=== PATIENT | male | born 2000 | race Caucasian/White ===

== ENCOUNTER 2020-01-25 21:08 | Observation (INO) | payer OTHER ==
[2020-01-25 22:08] LABS: ABSOLUTE LYMPHOCYTES (AUTO) 1.2 10^3/uL (0.5-4.7); ABSOLUTE NEUT (AUTO) 15.4 10^3/uL (1.7-8.2); BASOPHILS % (AUTO) 0.2 % (0-2); EOSINOPHILS % (AUTO) 0.1 % (0-6); HEMATOCRIT 45.9 % (37.9-51.0); HEMOGLOBIN 16.3 g/dL (13.5-17.0); LYMPHOCYTES % (AUTO) 6.9 % (13-45); MEAN CORPUSCULAR HEMOGLOBIN 29.3 pg (27.0-33.4); MEAN CORPUSCULAR HGB CONC 35.6 g/dL (32.0-36.0); MEAN CORPUSCULAR VOLUME 82 fl (80-97); MONOCYTES % (AUTO) 5.9 % (3-13); PLATELET COUNT 317 10^3/uL (150-450); RED BLOOD COUNT 5.58 10^6/uL (4.35-5.55); RED CELL DISTRIBUTION WIDTH 12.8 % (11.5-14.0); SEGMENTED NEUTROPHILS % (AUTO) 86.9 % (42-78); TOTAL CELLS COUNTED % (AUTO) 100 %; WHITE BLOOD COUNT 17.7 10^3/uL (4.0-10.5)
[2020-01-25 22:28] LABS: ALKALINE PHOSPHATASE 64 U/L (38-126); ANION GAP 14 (5-19); ASPARTATE AMINO TRANSFERASE 27 U/L (17-59); BILIRUBIN,TOTAL 0.9 mg/dL (0.2-1.3); BLOOD UREA NITROGEN 11 mg/dL (7-20); CALCIUM 10.4 mg/dL (8.4-10.2); CARBON DIOXIDE 19 mmol/L (22-30); CHLORIDE 101 mmol/L (98-107); GLUCOSE 147 mg/dL (75-110); POTASSIUM 3.3 mmol/L (3.6-5.0); TOTAL PROTEIN 7.6 g/dL (6.3-8.2)
[2020-01-25 22:56] LABS: APPEARANCE,URINE CLEAR; BILIRUBIN,URINE NEGATIVE (NEGATIVE); COLOR,URINE YELLOW; GLUCOSE, URINE NEGATIVE (NEGATIVE); KETONES,URINE 20 mg/dL (NEGATIVE); LEUKOCYTE ESTERASE,URINE NEGATIVE (NEGATIVE); NITRITE,URINE NEGATIVE (NEGATIVE); PROTEIN,URINE NEGATIVE (NEGATIVE); URINE SPECIFIC GRAVITY 1.017; UROBILINOGEN,URINE NEGATIVE mg/dL (<2.0)
[2020-01-25] MEDS ORDERED: NORMAL SALINE 1000 ML 1,000 ML IV ONE (23:18)
[2020-01-25] MEDS ORDERED: ONDANSETRON HCL INJ/PF 4 MG/2 ML SDV IV ONE (23:19)
[2020-01-25] MEDS ORDERED: MORPHINE SULFATE 10 MG/ML INJ IV ONE (23:19)
[2020-01-25] MEDS ORDERED: POTASSI CL 20 MEQ/50 ML RIDER 20 MEQ/50 ML RTUPB IV ONE (23:19)
--- NOTE | 2020-01-25 23:29 | ER Document Report ---
ED Medical Screen (RME) - General Chief Complaint: Abdominal Pain Stated Complaint: SEVERE ABDOMINAL PAIN, BODY PAIN & TINGLES, CLAMY Time Seen by Provider: 01/25/20 22:45 Notes: Patient is a 19-year-old male who presents the emergency department with a chief complaint of generalized abdominal pain. Patient states that his pain started around 4:00 this afternoon. Patient states that he went jet skiing and denies any trauma. Patient denies any abdominal surgeries in the past. He states that he has never had this pain before. Patient is currently on Adderall for ADHD. - Related Data Allergies/Adverse Reactions: No Known Allergies Allergy (Verified 01/25/20 22:07) Review of Systems - Review of Systems Notes: REVIEW OF SYSTEMS: CONSTITUTIONAL : Denies recent illness. Denies recent unintentional weight loss. Denies fever, chills, or sweats. EENT: Denies eye, ear, throat, or mouth pain, discharge, or symptoms. Denies nasal or sinus congestion. CARDIOVASCULAR: Denies chest pain. RESPIRATORY: Denies shortness of breath, cough, congestion, difficulty breathing, or wheezing. GASTROINTESTINAL: See HPI. GENITOURINARY: Denies difficulty urinating, burning, blood in urine, urgency or frequency. MUSCULOSKELETAL: Denies neck and back pain. Denies joint pain or swelling. SKIN: Denies rash, itchiness, or lesions HEMATOLOGIC : Denies easy bruising or bleeding. LYMPHATIC: Denies swollen, painful, enlarged glands. NEUROLOGICAL: Denies no numbness or tingling denies weakness. Denies headache. Denies altered mental status. Denies alteration in speech. PSYCHIATRIC: Denies stress, anxiety, alteration in sleep patterns, or depression. All other systems reviewed and negative. Physical Exam - Vital signs Vitals: Temp Pulse Resp BP Pulse Ox 97.5 F 68 20 131/59 H 100 01/25/20 22:00 01/25/20 22:00 01/25/20 22:00 01/25/20 22:00 01/25/20 22:00 - Notes Notes: PHYSICAL EXAMINATION: GENERAL: Appears well, healthy, well-nourished, no acute distress. HEAD: Normocephalic, atraumatic. EYES: PERRL, conjunctiva normal, all extraocular movements intact, sclera nonicteric ENT: Moist mucous membranes. NECK: Supple, no noticeable swelling, redness, rash. Normal range of motion. LUNGS: Equal breath sounds bilaterally and clear to auscultation. No wheezes rales or rhonchi. CARDIOVASCULAR: S1-S2, regular rate, regular rhythm. Radial pulses 2+, normal. ABDOMEN: Normoactive bowel sounds. Soft, very tender generalized abdomen. Rebound tenderness to right lower quadrant. EXTREMITIES: Normal strength and range of motion, no pitting or edema. No cyanosis. NEUROLOGICAL: Moves all extremities upon command. Strength 5/5 in all extremities. PSYCH: Normal mood, normal affect. SKIN: Warm, dry. No rash, lesions, ulcerations noted. Normal skin turgor. Course - Re-evaluation Re-evalutation: 01/26/20 00:15 Hematology shows an elevated white count of 17,700 with a left shift with 86.9% neutrophils. No anemia noted. Chemistries show a sodium of 133.9 and a potassium of 3.3. Patient will be given potassium IV. 01/26/20 00:41 CT of the abdomen and pelvis is read by the radiologist that the appendix is at the upper limits of normal with 2 appendicoliths. I spoke with Dr. Eagle, the radiologist. He states that this is likely an early appendicitis. Will call Dr. Manzanares for consultation. We will start Zosyn. Notified the patient. 01/26/20 00:[address] Manzanares, the patient will be rapid covid test the patient. Patient will be admitted to the surgical floor. - Vital Signs Vital signs: Temp Pulse Resp BP Pulse Ox 97.5 F 68 17 131/59 H 98 01/25/20 22:00 01/25/20 22:00 01/26/20 00:16 01/25/20 22:00 01/26/20 00:16 - Laboratory Result Diagrams: 01/25/20 21:42 01/25/20 21:42 Laboratory results interpreted by me: 01/25/20 01/25/20 01/25/20 21:42 21:42 22:40 WBC 17.7 H RBC 5.58 H Lymph % (Auto) 6.9 L Absolute Neuts (auto) 15.4 H Seg Neutrophils % 86.9 H Sodium 133.9 L Potassium 3.3 L Carbon Dioxide 19 L Glucose 147 H Calcium 10.4 H Urine Ketones 20 H Doctor's Discharge - Discharge Clinical Impression: Appendicitis Qualifiers: Appendicitis type: acute appendicitis Acute appendicitis type: with generalized peritonitis Appendicitis gangrene presence: without gangrene Appendicitis perforation presence: unspecified whether perforation present Appendicitis abscess presence: unspecified whether abscess present Qualified Code(s): K35.20 - Acute appendicitis with generalized peritonitis, without abscess Condition: Stable Disposition: ADMITTED INPATIENT
[2020-01-26 00:05] LABS: URINE BARBITURATES SCREEN NEGATIVE; URINE BENZODIAZEPINES SCREEN NEGATIVE; URINE COCAINE SCREEN NEGATIVE; URINE MARIJUANA (THC) SCREEN NEGATIVE; URINE METHADONE SCREEN NEGATIVE; URINE PHENCYCLIDINE SCREEN NEGATIVE
[2020-01-26 00:14] LABS: URINE AMPHETAMINES SCREEN UNCONFIRMED POSITIVE
[2020-01-26] MEDS ORDERED: MORPHINE SULFATE 10 MG/ML INJ IV ONE (00:32)
--- NOTE | 2020-01-26 00:33 | RADIOLOGY REPORT (SQ) ---
EXAM DESCRIPTION: [facility]: CT ABDOMEN PELVIS WITH IV CONTRAST CLINICAL HISTORY: 19 years Male; Abdominal pain; RLQ appendicitis?; TECHNIQUE: CT of the abdomen and pelvis using intravenous contrast. All CT scans at this facility use dose modulation, iterative reconstruction, and/or weight based dosing when appropriate to reduce radiation dose to as low as reasonably achievable. COMPARISON: None. FINDINGS: Abdomen: Stomach: No significant distention or surrounding edema. Liver:No focal lesions. No intrahepatic ductal distention. Gallbladder:Nondistended Pancreas:Within normal limits Spleen:Within normal limits Right kidney:No hydronephrosis. No focal lesion. Left kidney:No hydronephrosis. No focal lesion. Adrenal glands:Within normal limits Vascular structures:Within normal limits Pelvis: Small bowel:No significant distention. Appendix: There is an appendicolith near the tip and an appendicolith in the proximal appendix. Maximum transverse diameter 10 mm. There is no significant surrounding edema. No extraluminal air or fluid. Colon:No distention or acute pericolonic edema. No free intraperitoneal fluid or air. Bones: No acute bone findings. Bladder: Unremarkable. No pelvic mass or adenopathy. IMPRESSION: 1. Appendix is at the upper limits of normal in diameter, with 2 appendicoliths. There is no surrounding acute edema, although this could be an early appendicitis. 2. Otherwise normal exam.
[2020-01-26] MEDS ORDERED: PIPERACILLIN/TAZOBACTAM 3.375 GM VIAL IV ONE (00:47)
--- NOTE | 2020-01-26 01:01 | ER Document Report ---
ED GI/ - General Chief Complaint: Abdominal Pain Stated Complaint: SEVERE ABDOMINAL PAIN, BODY PAIN & TINGLES, CLAMY Time Seen by Provider: 01/25/20 22:45 Notes: Patient is a 19-year-old male who presents the emergency department with a chief complaint of generalized abdominal pain. Patient states that his pain started around 4:00 this afternoon. Patient states that he went jet skiing and denies any trauma. Patient denies any abdominal surgeries in the past. He states that he has never had this pain before. Patient is currently on Adderall for ADHD. - Related Data Allergies/Adverse Reactions: No Known Allergies Allergy (Verified 01/25/20 22:07) Past Medical History - General Information source: Patient - Social History Smoking Status: Never Smoker Family History: Reviewed & Not Pertinent Patient has homicidal ideation: No Review of Systems - Review of Systems Notes: REVIEW OF SYSTEMS: CONSTITUTIONAL : Denies recent illness. Denies recent unintentional weight loss. Denies fever, chills, or sweats. EENT: Denies eye, ear, throat, or mouth pain, discharge, or symptoms. Denies nasal or sinus congestion. CARDIOVASCULAR: Denies chest pain. RESPIRATORY: Denies shortness of breath, cough, congestion, difficulty breathing, or wheezing. GASTROINTESTINAL: See HPI. GENITOURINARY: Denies difficulty urinating, burning, blood in urine, urgency or frequency. MUSCULOSKELETAL: Denies neck and back pain. Denies joint pain or swelling. SKIN: Denies rash, itchiness, or lesions HEMATOLOGIC : Denies easy bruising or bleeding. LYMPHATIC: Denies swollen, painful, enlarged glands. NEUROLOGICAL: Denies no numbness or tingling denies weakness. Denies headache. Denies altered mental status. Denies alteration in speech. PSYCHIATRIC: Denies stress, anxiety, alteration in sleep patterns, or depression. All other systems reviewed and negative. Physical Exam - Vital signs Vitals: Temp Pulse Resp BP Pulse Ox 97.5 F 68 20 131/59 H 100 01/25/20 22:00 01/25/20 22:00 01/25/20 22:00 01/25/20 22:00 01/25/20 22:00 - Notes Notes: PHYSICAL EXAMINATION: GENERAL: Appears well, healthy, well-nourished, no acute distress. HEAD: Normocephalic, atraumatic. EYES: PERRL, conjunctiva normal, all extraocular movements intact, sclera nonicteric ENT: Moist mucous membranes. NECK: Supple, no noticeable swelling, redness, rash. Normal range of motion. LUNGS: Equal breath sounds bilaterally and clear to auscultation. No wheezes rales or rhonchi. CARDIOVASCULAR: S1-S2, regular rate, regular rhythm. Radial pulses 2+, normal. ABDOMEN: Normoactive bowel sounds. Soft, very tender generalized abdomen. Rebound tenderness to right lower quadrant. EXTREMITIES: Normal strength and range of motion, no pitting or edema. No cyanosis. NEUROLOGICAL: Moves all extremities upon command. Strength 5/5 in all ext remities. PSYCH: Normal mood, normal affect. SKIN: Warm, dry. No rash, lesions, ulcerations noted. Normal skin turgor. Course - Re-evaluation Re-evalutation: 01/26/20 00:15 Hematology shows an elevated white count of 17,700 with a left shift with 86.9% neutrophils. No anemia noted. Chemistries show a sodium of 133.9 and a potassium of 3.3. Patient will be given potassium IV. 01/26/20 00:41 CT of the abdomen and pelvis is read by the radiologist that the appendix is at the upper limits of normal with 2 appendicoliths. I spoke with Dr. Eagle, the radiologist. He states that this is likely an early appendicitis. Will call Dr. Manzanares for consultation. We will start Zosyn. Notified the patient. 01/26/20 00:[address] Manzanares, the patient will be rapid covid test the patient. Patient will be admitted to the surgical floor. - Vital Signs Vital signs: Temp Pulse Resp BP Pulse Ox 97.4 F 90 16 122/54 L 100 01/26/20 06:50 01/26/20 06:50 01/26/20 06:50 01/26/20 06:50 01/26/20 06:50 - Laboratory Result Diagrams: 01/25/20 21:42 01/25/20 21:42 Laboratory results interpreted by me: 01/25/20 01/25/20 01/25/20 21:42 21:42 22:40 WBC 17.7 H RBC 5.58 H Lymph % (Auto) 6.9 L Absolute Neuts (auto) 15.4 H Seg Neutrophils % 86.9 H Sodium 133.9 L Potassium 3.3 L Carbon Dioxide 19 L Glucose 147 H Calcium 10.4 H Urine Ketones 20 H Discharge - Discharge Clinical Impression: Appendicitis Qualifiers: Appendicitis type: acute appendicitis Acute appendicitis type: with generalized peritonitis Appendicitis gangrene presence: without gangrene Appendicitis pe rforation presence: unspecified whether perforation present Appendicitis abscess presence: unspecified whether abscess present Qualified Code(s): K35.20 - Acute appendicitis with generalized peritonitis, without abscess Condition: Good Disposition: ADMITTED INPATIENT Admitting Provider: Surgicalist Unit Admitted: Surgical Floor
--- NOTE | 2020-01-26 01:44 | PDOC H&P ---
History of Present Illness Admission Date/PCP: 01/26/20 01:11 Patient complains of: Right lower quadrant pain, subjective fevers/chills History of Present Illness: TINY MONTALVO is a 19 year old male with a 1 day history of sharp, stabbing right lower quadrant pain. His pain was mild at first, however it intensified throughout the day. He has had nausea and subjective fever/chills. He rates his pain as 6 out of 10. The pain is constant. Movement and palpation make his pain worse, nothing makes it better. It does not radiate. His only medical problem is ADHD, for which he takes Adderall. He denies chest pain, shortness of breath, melena, hematochezia, hematemesis, dizziness, blurry vision, fatigue, malaise, headache, rash. Past Medical History Psychiatric Medical History: Reports: Attention Deficit Hyperactivity Disorder Past Surgical History Past Surgical History: Reports: None Social History Smoking Status: Never Smoker Frequency of Alcohol Use: Social Hx Recreational Drug Use: No Hx Prescription Drug Abuse: No Family History Parental Family History Reviewed: Yes Children Family History Reviewed: Yes Sibling(s) Family History Reviewed.: Yes Medication/Allergy Allergies/Adverse Reactions: No Known Allergies Allergy (Verified 01/25/20 22:07) Review of Systems Constitutional: PRESENT: chills, fever(s). ABSENT: fatigue, headache(s), weakness Eyes: ABSENT: visual disturbances Ears: ABSENT: hearing changes Nose, Mouth, and Throat: ABSENT: sore throat Cardiovascular: ABSENT: chest pain Respiratory: ABSENT: cough, dyspnea Gastrointestinal: PRESENT: abdominal pain, nausea Genitourinary: ABSENT: dysuria Musculoskeletal: ABSENT: back pain Integumentary: ABSENT: pruritus, rash Neurological: ABSENT: confusion, convulsions, dizziness Psychiatric: ABSENT: anxiety, depression Endocrine: ABSENT: cold intolerance, heat intolerance Hematologic/Lymphatic: ABSENT: easy bleeding, easy bruising Physical Exam Vital Signs: Temp Pulse Resp BP Pulse Ox 97.5 F 68 17 131/59 H 98 01/25/20 22:00 01/25/20 22:00 01/26/20 00:16 01/25/20 22:00 01/26/20 00:16 Intake & Output 01/24/20 01/25/20 01/26/20 06:59 06:59 06:59 Weight 74.843 kg General appearance: PRESENT: no acute distress, cooperative Head exam: PRESENT: atraumatic, normocephalic Eye exam: PRESENT: EOMI, PERRLA. ABSENT: scleral icterus Mouth exam: ABSENT: moist, neck supple Neck exam: ABSENT: meningismus, tenderness, thyromegaly, tracheal deviation Respiratory exam: PRESENT: unlabored. ABSENT: chest wall tenderness, tachypnea, wheezes Cardiovascular exam: PRESENT: RRR. ABSENT: tachycardia Vascular exam: PRESENT: normal capillary refill GI/Abdominal exam: PRESENT: guarding - Right lower quadrant, soft, tenderness - Right lower quadrant. ABSENT: distended Rectal exam: PRESENT: deferred Extremities exam: ABSENT: clubbing Musculoskeletal exam: ABSENT: deformity Neurological exam: PRESENT: alert, awake, oriented to person, oriented to place, oriented to time, oriented to situation, CN II-XII grossly intact Psychiatric exam: ABSENT: agitated, anxious, depressed Focused psych exam: ABSENT: delusional Skin exam: ABSENT: cyanosis, erythema, jaundice Results Laboratory Results: 01/25/20 21:42 01/25/20 21:42 01/25/20 01/25/20 01/25/20 21:42 21:42 22:40 WBC 17.7 H RBC 5.58 H Hgb 16.3 Hct 45.9 MCV 82 MCH 29.3 MCHC 35.6 RDW 12.8 Plt Count 317 Seg Neutrophils % 86.9 H Sodium 133.9 L Potassium 3.3 L Chloride 101 Carbon Dioxide 19 L Anion Gap 14 BUN 11 Creatinine 0.77 Est GFR ( Amer) > 60 Glucose 147 H Calcium 10.4 H Total Bilirubin 0.9 AST 27 Alkaline Phosphatase 64 Total Protein 7.6 Albumin 5.0 Lipase 49.9 Urine Color YELLOW Urine Appearance CLEAR Urine pH 7.0 Ur Specific [place] 1.017 Urine Protein NEGATIVE Urine Glucose (UA) NEGATIVE Urine Ketones 20 H Urine Blood NEGATIVE Urine Nitrite NEGATIVE Ur Leukocyte Esterase NEGATIVE Urine WBC (Auto) 1 Urine RBC (Auto) 0 Impressions: Abdomen/Pelvis CT 01/25/20 23:20 IMPRESSION: 1. Appendix is at the upper limits of normal in diameter, with 2 appendicoliths. There is no surrounding acute edema, although this could be an early appendicitis. 2. Otherwise normal exam. Assessment & Plan - Diagnosis (1) Appendicitis Qualifiers: Appendicitis type: acute appendicitis Acute appendicitis type: with general ized peritonitis Appendicitis gangrene presence: without gangrene Appendicitis perforation presence: unspecified whether perforation present Appendicitis abscess presence: unspecified whether abscess present Qualified Code(s): K35.20 - Acute appendicitis with generalized peritonitis, without abscess Is this a current diagnosis for this admission?: Yes - Plan Summary Plan Summary: This is a 19-year-old male with right lower quadrant pain, leukocytosis, and a CT scan (which I have reviewed images and reports) consistent with acute appendicitis. I discussed surgical versus nonsurgical options. The patient has chosen appendectomy as definitive treatment. Risks/benefits discussed, informed consent obtained, and all questions answered. COVID-19 test is pending. Plan for surgery once COVID-19 test has returned negative.
[2020-01-26] MEDS ORDERED: KETOROLAC TROMETHAMINE 60 MG/2 ML SDV ONE (03:08)
[2020-01-26] MEDS ORDERED: DEXAMETHASONE SOD PHOSPHATE INJ 4 MG/1 ML VIAL ONE (03:09)
[2020-01-26] MEDS ORDERED: PROPOFOL INJ 200 MG/20 ML VIAL IV ONE (03:09)
[2020-01-26] MEDS ORDERED: MIDAZOLAM 2 MG/2 ML INJ ONE (03:09)
[2020-01-26] MEDS ORDERED: ONDANSETRON HCL INJ/PF 4 MG/2 ML SDV ONE (03:09)
[2020-01-26] MEDS ORDERED: FENTANYL CITRATE INJ/PF 100 MCG/2 ML AMPUL ONE (03:09)
[2020-01-26] MEDS ORDERED: BUPIVACAINE HCL 0.25 % INJ/PF (2.5 MG/1 ML) 30 ML VIAL ONE (03:40)
[2020-01-26] MEDS ORDERED: PROMETHAZINE HCL INJ 25 MG/1 ML VIAL IV PRN (03:58)
[2020-01-26] MEDS ORDERED: DIPHENHYDRAMINE HCL 50 MG/ML VIAL IV PRN (03:58)
[2020-01-26] MEDS ORDERED: MORPHINE SULFATE 10 MG/ML INJ IV PRN (03:58)
[2020-01-26] MEDS ORDERED: FENTANYL CITRATE INJ/PF 100 MCG/2 ML AMPUL IV PRN ×3 (03:58)
[2020-01-26] MEDS ORDERED: MEPERIDINE HCL/PF INJ 25 MG/1 ML DISP.SYRIN IV PRN (03:58)
--- NOTE | 2020-01-26 04:45 | Operative Report ---
Nonrecallable Operative Report DATE OF SURGERY: 01/26/20 PREOPERATIVE DIAGNOSIS: Acute appendicitis POSTOPERATIVE DIAGNOSIS: Same as above OPERATION: laparoscopic appendectomy SURGEON: HARPAL MOLINA ANESTHESIA: GA TISSUE REMOVED OR ALTERED: Appendix COMPLICATIONS: None apparent ESTIMATED BLOOD LOSS: Minimal PROCEDURE: Drains/implants: None. Procedure in detail: After informed consent was obtained, the patient was brought to the operating room and laid in the supine position. The area of the abdomen was prepped and draped in a normal sterile fashion. A supraumbilical incision was created with a 15 blade scalpel. Dissection was carried through the subcutaneous tissues using sharp and blunt dissection. The cicatrix was identified, grasped with a Chris clamp, and retracted upwards. The linea alba fascia was incised sharply, the abdomen was entered sharply. The balloon trocar was inserted, and pneumoperitoneum was achieved. A suprapubic 5 mm trocar was placed under direct laparoscopic visualization. A left lower quadrant trocar was placed in similar fashion. Atraumatic graspers were placed through the 5 mm ports. The appendix was easily identified and retracted anteriorly. The mesoappendix was taken down using the harmonic scalpel. Next, 2 PDS Endoloops were secured around the base the appendix. The appendix was then amputated using the harmonic scalpel and placed into an Endo Catch bag. The appendix was then removed through the supraumbilical site. The camera was reinserted. The right lower quadrant was inspected. It was found to be free of any hemorrhage. Once this was confirmed, the 5 mm trochars were removed under direct laparoscopic visualization. The supraumbilical trocar was removed, and pneumoperitoneum was relieved. The supraumbilical fascia was closed using 0 Vicryl suture in [id number] fashion. The overlying skin was closed using 4-0 Vicryl Rapide suture in subcuticular fashion. Dressings were placed, and the procedure was concluded. All sponge, instrument, and needle counts were correct x2. Condition: Stable.
[2020-01-26] MEDS ORDERED: ONDANSETRON HCL INJ/PF 4 MG/2 ML SDV IV PRN (04:48)
[2020-01-26] MEDS ORDERED: HYDROCODONE/ACETAMINOPHEN 10-325 MG TABLET PO PRN (04:50)
--- NOTE | 2020-01-26 08:16 | Discharge Summary ---
Discharge Summary (SDC) - Discharge Final Diagnosis: acute appendicitis Date of Surgery: 01/26/20 Discharge Date: 01/26/20 Condition: Good Treatment or Instructions: pt to use advil for pain Discharge Diet: As Tolerated Discharge Activity: No Lifting Over 10 Pounds Report the Following to Your Physician Immediately: Shortness of Breath, Incr ease in Pain, Fever over 101 Degrees - pt will f/u with pmd when he returns to [place].
[2020-01-26] MEDS ORDERED: KETOROLAC TROMETHAMINE INJ/PF 30 MG/1 ML SDV IV SCH (10:00)
[2020-01-26] MEDS ORDERED: DOCUSATE SODIUM 100 MG/10 ML UDC PO SCH (10:00)
[2020-01-26] MEDS ORDERED: GLYCOPYRROLATE 1 MG/5 ML VIAL ONE (10:43)
[2020-01-26] MEDS ORDERED: SUCCINYLCHOLINE CHLORIDE INJ 200 MG/10 ML VIAL ONE (10:43)
[2020-01-26] MEDS ORDERED: NEOSTIGMINE METHYLSULFATE 10 MG/10 ML VIAL ONE (10:43)
[2020-01-26] MEDS ORDERED: LIDOCAINE 2% INJ-PF (20 MG/ML) 2 ML AMPUL ONE (10:43)
[2020-01-26] MEDS ORDERED: ROCURONIUM BROMIDE INJ 50 MG/5 ML VIAL IV ONE (10:43)
[2020-01-26 11:07] VITALS: BP 119/53
== END 2020-01-26 10:00 | disposition home or self-care (01) ==
LOC: ER 21:08 → INTOOBSV 01-26 01:11 → EH 01-26 01:11 → 4N 01-26 05:23
PROVIDERS: ATTEND Surgery
DX: K35.20 Acute appendicitis with generalized peritonitis, without abscess (principal); F90.9 Attention-deficit hyperactivity disorder, unspecified type; Z79.899 Other long term (current) drug therapy; Z03.818 Encounter for observation for suspected exposure to other biological agents ruled out
CPT/HCPCS: 96376; 99285; 96361; 96375; 96365; 36415; 83690; 85025; 87635; 80053; 81001; 80307; 88304 ×2; 74177; 94799; 44970; J2250; J1100; J1885 ×2; J3010; J2270 ×2; J2405 ×2; J3480; J7030; J2704; J2543; C9803; 840; 99140; G0378; J0330; J2710; J3490